=== PATIENT | male | born 1950 | race Caucasian/White ===

== ENCOUNTER 2016-11-06 12:18 | Emergency (ER) | payer OTHER ==
[2016-11-06 12:32] VITALS: BMI 30.1
--- NOTE | 2016-11-06 13:02 | DR.GENAD ---
HPI - PCP Primary Care Physician: dominic morel in [place] - HPI Comment HPI Comment: PATIENT SAID HE IS SPINNING AND HAVING IMBALANCE WIYH SLIGHT NAUSEA. NO HEADACHE, FEVER OR TRAUMA. - Complaint/Symptoms Chief Complaint Doctors Comments: DIZZINESS, AND ATAXIA SINCE WAKING UP THIS AM. Chief Complaint:: patient stated he has been dizzy since he woke up. - Nurses notes reviewed Nurses Notes Review: Yes - Source History Provided: Patient - Mode of Arrival Mode of Arrival: Wheelchair - Timing Onset of Chief Complaint: 11/06/16 Came on: Suddenly - Duration Duration: Constant Duration: Hours - Severity Severity: Moderate PMH - PMH Past Medical History: Yes Past Medical History: GERD Past Surgical History: Yes Past Surgical History Comment: cateracts surgery - Family History History of Family Medical Conditions: Yes Family Medical History: Diabetes Mellitus, Hypertension - Social History Does patient currently use any type of tobacco product: No Have you used tobacco products in the last 12 months: No Type of Tobacco Use: None Does any household member use tobacco: No Alcohol Use: None Do you use any recreational Drugs:: No Lives With: Family Lives Where: Home - infectious screening In the last 2 months have you had wt loss of >10#?: NO Have you had fever, night sweats or hemotysis?: No Have you traveled outside the country in the last 6 months?: No Isolation: Standard ROS - Review of Systems Constitutional: No Symptoms Reported Eyes: No Symptoms Reported ENTM: No Symptoms Reported Respiratoy: No Symptoms Reported Cardiovascular: No Symptoms Reported Gastrointestinal/Abdominal: No Symptoms Reported Genitourinary: No Symptoms Reported Neurological: Dizziness, Other (ATAXIA) Musculoskeletal: No Symptoms Reported Integumentary: No Symptoms Reported Hematologic/Lymphatic: No Symptoms Reported Endocrine: No Symptoms Reported All Other Systems: Reviewed and Negative PE - Vital Signs Vitals: Pulse Rate 62 Respiratory Rate 18 Blood Pressure [Left Arm] 138/88 Blood Pressure 129/95 O2 Sat by Pulse Oximetry 100 - General Limitations: No Limitations General Appearance: Alert - Head Head Exam: Normal Inspection - Eyes Eye exam: Normal Appearance - ENT ENT Exam: Normal External Ear Exam External Ear Exam: Normal External Inspection TM/Canal Exam: Bilateral Normal Nose Exam: Normal Nose Exam Mouth Exam: Normal Inspection Throat Exam: Normal Inspection - Neck Neck Exam: Trachea Midline - Chest Chest Inspection: Symmetric Chest Wall Rise - Respiratory Respiratory Exam: Normal Lung Sounds Bilat - Cardiovascular Cardiovascular Exam: Regular Rate, Normal Rhythm, Normal Heart Sounds - Abdominal Exam Abdominal Exam: Normal Bowel Sounds, Soft. negative: Tenderness - Extremities Extremities Exam: Normal Inspection - Back Back Exam: Normal Inspection - Neurologic Neurological Exam: Oriented X3, CN II-XII Intact, Reflexes Normal. negative: Normal Gait (ATAXIA), Motor Sensory Deficit - Psychiatric Psychiatric Exam: Normal Affect, Normal Mood - Skin Skin Exam: Normal Color MDM - Additional Information Additional Information Obtained From: Family - Differential Diagnosis Differential Diagnosis: VERTIGO, DIZZINESS, CVA, TIA, LABIRINTHITIS Course - Treatment Treatment: SEE ORDERS. SYMTOM DECREASING WITH MECLIZINE. - Education/Counseling Education/Counseling: Patient, Family, Education Educated On: Treatment, Diagnosis, Needs for Follow Up ROR - Labs Reviewed Laboratory Results Reviewed?: Yes Result Diagrams: 11/06/16 13:13 11/06/16 13:13 Laboratory: WBC 8.3 X10^3/uL (3.6-10.0) 11/06/16 13:13 RBC 5.16 X10^6/uL (4.7-6.0) 11/06/16 13:13 Hgb 14.9 g/dL (13.5-18.0) 11/06/16 13:13 Hct 43.5 % (42.0-54.0) 11/06/16 13:13 MCV 84.4 fL (80.0-100.0) 11/06/16 13:13 MCH 28.8 pg (27.0-34.0) 11/06/16 13:13 MCHC 34.2 g/dL (33.0-35.0) 11/06/16 13:13 RDW 13.3 % (11.6-16.5) 11/06/16 13:13 Plt Count 183 X10^3/uL (150.0-450.0) 11/06/16 13:13 MPV 9.3 fL (7.4-11.0) 11/06/16 13:13 Neut % 82.5 % (42.0-75.0) H 11/06/16 13:13 Lymph % 10.1 % (21.0-51.0) L 11/06/16 13:13 [place] % 5.9 % (0.0-13.0) 11/06/16 13:13 Eos % 0.8 % (0.9-2.9) L 11/06/16 13:13 Baso % 0.7 % (0.2-1.0) 11/06/16 13:13 Neut # 6.8 x10^3/uL (2.2-4.8) H 11/06/16 13:13 Lymph # 0.8 X10^3/uL (1.3-2.9) L 11/06/16 13:13 [place] # 0.5 x10^3/uL (0.3-0.8) 11/06/16 13:13 Eos # 0.1 x10^3/uL (0.0-0.2) 11/06/16 13:13 Baso # 0.1 X10^3/uL (0.0-0.1) 11/06/16 13:13 Absolute Nucleated RBC 0.0 /100WBC 11/06/16 13:13 Sodium 137 mmol/L (136-145) 11/06/16 13:13 Corrected Sodium 138 mmol/L (136-145) 11/06/16 13:13 Potassium 4.2 mmol/L (3.5-5.1) 11/06/16 13:13 Chloride 107 mmol/L (98-107) 11/06/16 13:13 Carbon Dioxide 26.2 mmol/L (21-32) 11/06/16 13:13 BUN 17 mg/dL (7-18) 11/06/16 13:13 Creatinine 1.14 mg/dL (0.70-1.30) 11/06/16 13:13 Est GFR (MDRD) Af Amer > 60 (>60) 11/06/16 13:13 Est GFR (MDRD) Non-Af > 60 (>60) 11/06/16 13:13 Glucose 160 mg/dL (65-99) H 11/06/16 13:13 Calcium 8.6 mg/dL (8.5-10.1) 11/06/16 13:13 Corrected Calcium TNP 11/06/16 13:13 Total Bilirubin 0.60 mg/dL (0.2-1.0) 11/06/16 13:13 AST 18 Units/L (15-37) 11/06/16 13:13 ALT 28 Units/L (12-78) 11/06/16 13:13 Alkaline Phosphatase 93 Units/L (46-116) 11/06/16 13:13 Creatine Kinase 203 Units/L (39-308) 11/06/16 13:13 CK-MB (CK-2) 3.2 ng/mL (0-4.0) 11/06/16 13:13 CK/CKMB % Calc 1.6 % (<4) 11/06/16 13:13 Troponin I < 0.02 ng/mL (0-1.5) 11/06/16 13:13 Total Protein 7.3 g/dL (6.4-8.2) 11/06/16 13:13 Albumin 3.6 g/dL (3.4-5.0) 11/06/16 13:13 Globulin 3.7 g/dL (2.5-4.5) 11/06/16 13:13 Albumin/Globulin Ratio 1.0 Ratio (1.1-2.1) L 11/06/16 13:13 - XRAY XRAY Interpreted by: Radiologist XRAY Findings: REPORT DISCUSS WITH PATIENT. - EKG Rhythm: NSR (EKG NOTED) - Diagnosis Discharge Problem: Vertigo, Dizziness, Ataxia - Discharge Plan Disposition: 01 HOME, SELF-CARE Condition: Stable Prescriptions: Meclizine HCl 25 mg PO TID PRN #30 tab PRN Reason: Dizziness - Follow ups/Referrals Follow ups/Referrals: FRANKY,None [Primary Care Provider] - 11/08/16 PUMA FARIA [STAFF PHYSICIAN] - 11/08/16 - Instructions Instructions: Dizziness, [id number], Vertigo, [id number], Ataxia Additional Instructions: RETURN TO ED IF WORSE.
[2016-11-06] MEDS ORDERED: ANTIVERT TAB 25 MG PO ONE (13:03)
[2016-11-06] MEDS ORDERED: ANTIVERT TAB 25 MG ONE (13:06)
[2016-11-06 13:22] LABS: BASOPHILS # (AUTO) 0.1 X10^3/uL (0.0-0.1); BASOPHILS % (AUTO) 0.7 % (0.2-1.0); EOSINOPHILS # (AUTO) 0.1 x10^3/uL (0.0-0.2); EOSINOPHILS % (AUTO) 0.8 % (0.9-2.9); HEMATOCRIT 43.5 % (42.0-54.0); HEMOGLOBIN 14.9 g/dL (13.5-18.0); LYMPHOCYTES # (AUTO) 0.8 X10^3/uL (1.3-2.9); LYMPHOCYTES % (AUTO) 10.1 % (21.0-51.0); MEAN CORPUSCULAR HEMOGLOBIN 28.8 pg (27.0-34.0); MEAN CORPUSCULAR HGB CONC 34.2 g/dL (33.0-35.0); MEAN CORPUSCULAR VOLUME 84.4 fL (80.0-100.0); MEAN PLATELET VOLUME 9.3 fL (7.4-11.0); MONOCYTES # (AUTO) 0.5 x10^3/uL (0.3-0.8); MONOCYTES % (AUTO) 5.9 % (0.0-13.0); NEUTROPHILS # (AUTO) 6.8 x10^3/uL (2.2-4.8); NEUTROPHILS % (AUTO) 82.5 % (42.0-75.0); PLATELET COUNT 183 X10^3/uL (150.0-450.0); RED BLOOD COUNT 5.16 X10^6/uL (4.7-6.0); RED CELL DISTRIBUTION WIDTH 13.3 % (11.6-16.5); WHITE BLOOD COUNT 8.3 X10^3/uL (3.6-10.0)
[2016-11-06 13:34] LABS: BLOOD UREA NITROGEN 17 mg/dL (7-18); CALCIUM 8.6 mg/dL (8.5-10.1); CARBON DIOXIDE 26.2 mmol/L (21-32); CHLORIDE 107 mmol/L (98-107); COR NA(FOR HYPERGLY) 138 mmol/L (136-145); CREATININE 1.14 mg/dL (0.70-1.30); GLUCOSE 160 mg/dL (65-99); SODIUM 137 mmol/L (136-145); TROPONIN I < 0.02 ng/mL (0-1.5); eGFR BLACK RACES > 60 (>60); eGFR NON BLACK RACES > 60 (>60)
--- NOTE | 2016-11-06 13:35 | RAD ---
HISTORY: Chest pain Study: Single view of the chest Comparison: None Findings: The trachea is midline. The cardiac silhouette is enlarged prominence of the right atrium. The dominick gs are clear without focal infiltrate or effusion. IMPRESSION: 1. Cardiomegaly. Reported By:
[2016-11-06 13:38] LABS: ALANINE AMINOTRANSFERASE 28 Units/L (12-78); ALBUMIN 3.6 g/dL (3.4-5.0); ALKALINE PHOSPHATASE 93 Units/L (46-116); ASPARTATE AMINO TRANSFERASE 18 Units/L (15-37); CKMB % 1.6 % (<4); CREATINE KINASE 203 Units/L (39-308); CREATINE KINASE MB 3.2 ng/mL (0-4.0); TOTAL PROTEIN 7.3 g/dL (6.4-8.2)
--- NOTE | 2016-11-06 13:38 | CT ---
HEAD CT WITHOUT IV CONTRAST CLINICAL INDICATION: Dizziness TECHNIQUE: Axial CT images from skull base to vertex without IV contrast.Dose reduction techniques i ncluding Automated Exposure Control (AEC) and adjustment of mA and kV were utlized. COMPARISON: None FINDINGS: There is no abnormal brain parenchymal density. There is no evidence of acute infarction, intracran ial hemorrhage, mass or mass effect, or abnormal extra-axial collection. The density of the larger d ural venous sinuses is normal. The ventricles are normal in size, shape and position. The skull base and calvarium are normal. The included paranasal sinuses and mastoid air cells are predominantly cl ear. IMPRESSION: 1. No acute intracranial abnormality. Reported By:
[2016-11-06 14:14] VITALS: BP 138/88
== END 2016-11-06 14:21 | disposition home or self-care (01) ==
LOC: ER 12:26
DX: R42 Dizziness and giddiness (principal); R27.0 Ataxia, unspecified
CPT/HCPCS: 36415; 70450; 71010; 80053; 82550; 82553; 84484; 85025; 93005; 93010; 99283

== ENCOUNTER 2017-02-28 07:40 | Day surgery (SDC) | payer OTHER ==
[2017-02-28] MEDS ORDERED: ALCAINE or OPHTHETIC 1 DOSE AFFEYE ONE (07:50)
[2017-02-28] MEDS ORDERED: ALPHAGAN-P OPHTH 1 DOSE AFFEYE ONE (07:51)
[2017-02-28] MEDS ORDERED: TETRACAINE 0.5% OPHTH 1 DOSE AFFEYE ONE (09:10)
[2017-02-28 12:25] VITALS: BP 142/90
== END 2017-02-28 09:30 | disposition home or self-care (01) ==
LOC: SURG1 07:40
PROVIDERS: ATTEND Ophthalmology
PROC: 08QC3ZZ Repair Right Iris, Percutaneous Approach (ICD-10-PCS; principal; 2017-02-28 09:45)
DX: H40.1110 Primary open-angle glaucoma, right eye, stage unspecified (principal)
CPT/HCPCS: 65855

== ENCOUNTER 2017-03-28 08:36 | Day surgery (SDC) | payer OTHER ==
[2017-03-28] MEDS ORDERED: ALCAINE or OPHTHETIC 1 DOSE AFFEYE ONE (08:45)
[2017-03-28] MEDS ORDERED: ALPHAGAN-P OPHTH 1 DOSE AFFEYE ONE (08:47)
[2017-03-28] MEDS ORDERED: TETRACAINE 0.5% OPHTH 1 DOSE AFFEYE ONE (09:12)
[2017-03-28 10:36] VITALS: BP 134/94
== END 2017-03-28 09:23 | disposition home or self-care (01) ==
LOC: SURG1 08:36
PROVIDERS: ATTEND Ophthalmology
PROC: 08QD3ZZ Repair Left Iris, Percutaneous Approach (ICD-10-PCS; principal; 2017-03-28 11:15)
DX: H40.1122 Primary open-angle glaucoma, left eye, moderate stage (principal)
CPT/HCPCS: 65855